=== PATIENT | female | born 1985 | race Caucasian/White ===

== ENCOUNTER → 2016-10-26 | Outpatient (CLI) | payer OTHER | LOC: MOB LAB 12:24 | PROVIDERS: ATTEND Physician Assistant Medical | DX: N30.01 Acute cystitis with hematuria (principal) | CPT/HCPCS: 87088 ==

== ENCOUNTER → 2016-10-31 | Outpatient (CLI) | payer OTHER ==
[2016-10-31 10:15] LABS: BILIRUBIN,URINE MODERATE (NEG); CLARITY,URINE CLEAR (CLEAR); COLOR,URINE YELLOW; GLUCOSE, URINE (UA) NEGATIVE (NEG); HEMATOCRIT 45.8 % (37.0-47.0); HEMOGLOBIN 15.1 g/dL (12.0-16.0); MEAN CORPUSCULAR HEMOGLOBIN 29.6 PG (27-31); MEAN CORPUSCULAR VOLUME 89.8 FL (81-99); MEAN PLATELET VOLUME 9.8 FL (7.4-12.2); NITRATE,URINE NEGATIVE (NEG); OCCULT BLOOD,URINE NEGATIVE (NEG); PH,URINE 5.5 (5.0-8.5); PROTEIN,URINE 30 mg/dl (NEG)
[2016-10-31 10:23] LABS: CALCIUM 8.8 mg/dL (8.7-10.7); SERUM ALBUMIN 4.3 g/dL (3.5-4.8)
[2016-10-31 10:27] LABS: BACTERIA,URINE MODERATE; RENAL EPITHELIAL CELLS,URINE RARE; SQUAMOUS EPITHELIAL CELL,UR MODERATE; URINE SAMPLE TYPE VOIDED SPECIMEN
[2016-10-31 10:28] LABS: URINE CASTS MANY
[2016-10-31 10:44] LABS: PLATELET MORPHOLOGY COMMENT NORMAL MORPHOLOGY (NORM); RBC MORPHOLOGY COMMENT SEE COMMENTS (NORM)
[2016-10-31 10:45] LABS: BAND NEUTROPHILS % 9 % (0-10); BASOPHILS % (MANUAL) 0 % (0-1); EOSINOPHILS % (MANUAL) 0 % (0-8); LYMPHOCYTES % (MANUAL) 15 % (10-50); METAMYELOCYTES % 0 %; MONOCYTES % (MANUAL) 13 % (0-12); MYELOCYTES % 0 %; NEUTROPHILS % (MANUAL) 63 % (50-80); PROMYELOCYTES % 0 %
[2016-10-31 10:46] LABS: WBC MORPHOLOGY COMMENT SEE COMMENTS (NORM)
== END ==
LOC: MOB LAB 09:41
PROVIDERS: ATTEND Physician Assistant Medical
DX: R10.84 Generalized abdominal pain (principal); R50.9 Fever, unspecified; R53.83 Other fatigue; R82.99 Other abnormal findings in urine
CPT/HCPCS: 36415; 80053; 81001; 82565; 84156; 84443; 85007; 86038

== ENCOUNTER → 2016-11-13 | Outpatient (CLI) | payer OTHER ==
[2016-11-15 13:51] LABS: ANGIOTENSIN CONVERTING ENZ 67 U/L (8 - 53)
[2016-11-16 13:19] LABS: PARASITIC EXAM FIN 1858 (()); QUANTIFERON-TB GOLD RESULT Negative (Negative)
[2016-11-16 13:20] LABS: IGM, SERUM 471 mg/dL (37 - 286)
[2016-11-19 14:36] LABS: HISTOPLASMA MYCELIAL Negative (Negative)
[2016-11-20 08:08] LABS: HISTOPLASMA IMMUNODIFFUSION Negative (Negative)
[2016-11-21 15:31] LABS: COCCI COMPLEMENT F Negative (Negative); COCCI IMMUNODIFFUSION-IGG Negative (Negative)
[2016-11-22 07:09] LABS: COCCI IMMUNODIFFUSION IGM Negative (Negative)
== END ==
LOC: LAB 10:40
PROVIDERS: ATTEND Internal Medicine Nephrology
DX: R50.9 Fever, unspecified (principal); R11.10 Vomiting, unspecified; R10.9 Unspecified abdominal pain; R80.9 Proteinuria, unspecified; D72.819 Decreased white blood cell count, unspecified; Z87.898 Personal history of other specified conditions; Z78.9 Other specified health status
CPT/HCPCS: 82164; 82784; 83516; 86480; 86612; 86635; 86698; 87040; 87177; 87209

== ENCOUNTER → 2016-11-22 | Outpatient (CLI) | payer OTHER ==
--- NOTE | 2016-11-22 17:10 | DI ---
PA /LATERAL CHEST X-RAY, 11/22/2016 3:14 PM : Clinical History: Decreased white blood cell count Previous Exam: None available. There is no acute soft tissue or bony abnormality. Heart size is normal. Lungs are clear. Mediastinal structures are normal. There is a calcified granuloma within the right lung base. IMPRESSION: No acute disease.
== END ==
LOC: LAB 15:08
PROVIDERS: ATTEND Internal Medicine Nephrology
DX: D72.819 Decreased white blood cell count, unspecified (principal); R50.9 Fever, unspecified
CPT/HCPCS: 71020

== ENCOUNTER → 2016-11-24 | Outpatient (CLI) | payer OTHER ==
[2016-11-24 17:25] LABS: 24 HOUR URINE CREA CONCENTR 31.4 mg/dL
== END ==
LOC: LAB 16:34
PROVIDERS: ATTEND Internal Medicine Nephrology
DX: R80.9 Proteinuria, unspecified (principal); D72.819 Decreased white blood cell count, unspecified; R50.9 Fever, unspecified; R11.10 Vomiting, unspecified; R10.9 Unspecified abdominal pain
CPT/HCPCS: 82570; 84156